=== PATIENT | female | born 1995 | race Caucasian/White ===

== ENCOUNTER 2017-02-05 21:30 | Emergency (ER) | payer BC ==
[~2017-02-05] VITALS: Ht 172.7 cm; Wt 69.8 kg
[~2017-02-05 21:30] MED LIST: ADAP0.05 TOP; LACT1CAP6 PO; TRIA0.1O12 EXT
[2017-02-05 21:34] VITALS: TEMP 36.6; Ht 172.7 cm; Wt 69.8 kg
[2017-02-05] MEDS ORDERED: OMEG10007 PO (22:08)
[2017-02-05] MEDS ORDERED: PALI3TAB PO (22:08)
[2017-02-05] MEDS ORDERED: CARB200T PO ×2 (22:08)
[2017-02-05] MEDS ORDERED: PALI6TAB PO (22:08)
[2017-02-05 22:36] LABS: BASO % 0.3 %; BASO ABS # 0.02 K/uL (0-0.2); COMPLETE YES; EOS % 1.4 %; HEMATOCRIT 36.7 % (37-47); IG% 0.3 %; LYMPH % 24.9 %; LYMPH ABS # 1.94 K/uL (1.2-3.4); MEAN CELL VOLUME 89.1 fL (80-100); MEAN CORPUSCULAR HEMOGLOBIN 29.1 pg (25-34); MEAN CORPUSCULAR HGB CONC 32.7 g/dl (32-36); MEAN PLATELET VOLUME 10.1 fL (7.4-10.4); MONO % 9.8 %; NEUT % 63.3 %; PLATELET COUNT 182 K/uL (130-400); RED BLOOD COUNT 4.12 M/uL (4.2-5.4); WHITE BLOOD COUNT 7.78 K/uL (4.8-10.8)
[2017-02-05 23:00] LABS: ALT/SGPT 18 U/L (12-78); BLOOD UREA NITROGEN 12 mg/dl (7-18); BUN/CREATININE RATIO 24.5 (10-20); CALCIUM 8.5 mg/dl (8.5-10.1); CARBON DIOXIDE 30 mmol/L (21-32); CHLORIDE 107 mmol/L (98-107); CREATININE 0.47 mg/dl (0.60-1.20); GLUCOSE 89 mg/dl (70-99); POTASSIUM 3.6 mmol/L (3.5-5.1); SODIUM 142 mmol/L (136-145)
[2017-02-05 23:01] LABS: ACETAMINOPHEN < 2 ug/ml (10-30)
[2017-02-05 23:03] LABS: URINE APPEARANCE CLEAR (CLEAR); URINE BILIRUBIN NEG (NEG); URINE COLOR YELLOW; URINE EPITHELIAL CELL AUTO >30 /lpf (0-5); URINE NITRITE NEG (NEG); URINE SPECIFIC GRAVITY 1.017 (1.000-1.030); UROBILINOGEN NEG (NEG)
[2017-02-05 23:07] LABS: MANUAL MICROSCOPIC REQUIRED? NO; REVIEW REQ? NO
[2017-02-05 23:10] LABS: ALB/GLOB RATIO 1.2 (0.9-2); ALKALINE PHOSPHATASE 114 U/L (45-117); AST/SGOT 18 U/L (15-37)
--- NOTE | 2017-02-05 23:12 | EMERGENCY ROOM VISIT NOTE ---
History First contact with patient: 21:41 Chief Complaint: MENTAL HEALTH EVALUATION Stated Complaint: CANDELARIO, HAD SIDE EFFECTS FROM PSYCH MEDS History of Present Illness The patient is a 21 year old female who presents to the Emergency Room for mental health evaluation. The patient is accompanied by her father who helps provide much of the history. I initially interviewed the patient in her room by herself. She states that she is only here to appease her parents. The patient herself reports that she does not have any symptoms that would bring her to the ER herself. She admits to a history of bipolar disorder and is currently on Tegretol and Invega. The patient reports that she has been eating , sleeping, and using the bathroom is normal. No suicidal or homicidal ideation. No drug or alcohol use. She denies chance of . She does give permission for us to speak with her father, but not her mother. On questioning with the father in a private room without the patient, the father has concern for worsening candelario. The patient was evidently admitted to a psychiatric facility 3 weeks ago near [place]. She was an inpatient for one week before returning home, where she has been the past 2 weeks. The patient was initially depressed at home, but has started to ramp up with her candelario. She is not sleeping well according to her father. She has been making strange and out of character posts on social media. The patient has not been violent or threatening to hurt herself, but she is very rapidly cycling upwards according to her father. She evidently does have an appointment tomorrow with her psychiatrist. The patient herself rates her discomfort a 0/10. Review of Systems More than 10 systems were reviewed and otherwise negative with the exception of history of present illness. Past Medical/Surgical History History of bipolar Social History Smoking Status: Never Smoker Housing Status: lives with family Current/Historical Medications Scheduled Carbamazepine (Tegretol), 200 MG PO QAM Carbamazepine (Tegretol), 300 MG PO HS Fish Oil ([place]-3), 1 CAP PO DAILY Paliperidone (Invega), 3 MG PO QAM Paliperidone (Invega), 6 MG PO HS Allergies Coded Allergies: Cefuroxime (Verified Allergy, Unknown, HIVES, 02/05/17) Lurasidone (Unverified Allergy, Unknown, HIVES, 02/05/17) Physical Exam Vital Signs Date Time Temp Pulse Resp B/P Pulse Ox O2 Delivery O2 Flow Rate FiO2 02/06/17 03:00 71 18 123/76 100 02/06/17 02:12 76 16 119/81 100 Room Air 02/05/17 21:34 36.6 84 18 121/86 99 Room Air Physical Exam VITALS: Vitals are noted on the nurse's note and reviewed by myself. Vital signs stable. GENERAL: Well-developed, well-nourished, white female, who is in no acute distress and resting comfortably. Patient is cooperative with the examination. HEAD: Normocephalic atraumatic. EARS: External ear normal. External auditory canals clear, tympanic membranes pearly lora without erythema or effusion bilaterally. EYES: Pupils equal round and reactive to light and accommodation. Conjunctivae without injection, sclerae without icterus. Extraocular movements intact. NOSE: Patent, turbinates without inflammation or discharge. MOUTH: Mucous membranes moist. Tonsils are not enlarged. Pharynx without erythema, blood, or exudate. Uvula midline. Airway patent. NECK: Supple without nuchal rigidity. No lymphadenopathy. No thyromegaly. Cervical spine is nontender. HEART: Regular rate and rhythm without murmurs gallops or rubs. LUNGS: Clear to auscultation bilaterally without wheezes, rales or rhonchi. No retractions or accessory muscle use. ABDOMEN: Positive normal bowel sounds x 4. Soft, nontender, without masses or organomegaly. No guarding or rebound tenderness. MUSCULOSKELETAL: No muscle atrophy, erythema, or edema noted. Full range of motion without joint tenderness in all extremities. No tenderness to palpation. Normal gait. Strength 5/5 throughout. NEURO: Patient was alert and oriented to person place and time. CN II through XII grossly intact. Deep tendon reflexes 2+ throughout. No focal neurological deficits SKIN: The skin was without rashes, erythema, edema, or bruising. Capillary reflex less than 2 seconds. Medical Decision & Procedures Laboratory Results 02/05/17 22:19 Red Blood Count 4.12, Mean Corpuscular Volume 89.1, Mean Corpuscular Hemoglobin 29.1, Mean Corpuscular Hemoglobin Concent 32.7, Mean Platelet Volume 10.1, Neutrophils (%) (Auto) 63.3, Lymphocytes (%) (Auto) 24.9, Monocytes (%) (Auto) 9.8, Eosinophils (%) (Auto) 1.4, Basophils (%) (Auto) 0.3, Neutrophils # (Auto) 4.93, Lymphocytes # (Auto) 1.94, Monocytes # (Auto) 0.76, Eosinophils # (Auto) 0.11, Basophils # (Auto) 0.02 02/05/17 22:19 Test 02/05/17 21:50 02/05/17 22:19 Urine Color YELLOW Urine Appearance CLEAR (CLEAR) Urine pH 7.0 (4.5-7.5) Urine Specific [place] 1.017 (1.000-1.030) Urine Protein NEG (NEG) Urine Glucose (UA) NEG (NEG) Urine Ketones NEG (NEG) Urine Occult Blood TRACE (NEG) Urine Nitrite NEG (NEG) Urine Bilirubin NEG (NEG) Urine Urobilinogen NEG (NEG) Urine Leukocyte Esterase NEG (NEG) Urine WBC (Auto) 1-5 /hpf (0-5) Urine RBC (Auto) 5-10 /hpf (0-4) Urine Hyaline Casts (Auto) 1-5 /lpf (0-5) Urine Epithelial Cells (Auto) >30 /lpf (0-5) Urine Bacteria (Auto) NEG (NEG) Urine Test NEG (NEG) Urine Opiates Screen NEG (NEG) Urine Methadone, Qualitative NEG (NEG) Urine Barbiturates NEG (NEG) Urine Phencyclidine (PCP) Level NEG (NEG) Ur Amphetamine/Methamphetamine NEG (NEG) MDMA (Ecstasy) Screen NEG (NEG) Urine Benzodiazepines Screen NEG (NEG) Urine Cocaine Metabolite NEG (NEG) Urine Marijuana (THC) NEG (NEG) White Blood Count 7.78 K/uL (4.8-10.8) Red Blood Count 4.12 M/uL (4.2-5.4) Hemoglobin 12.0 g/dL (12.0-16.0) Hematocrit 36.7 % (37-47) Mean Corpuscular Volume 89.1 fL (80-100) Mean Corpuscular Hemoglobin 29.1 pg (25-34) Mean Corpuscular Hemoglobin Concent 32.7 g/dl (32-36) Platelet Count 182 K/uL (130-400) Mean Platelet Volume 10.1 fL (7.4-10.4) Neutrophils (%) (Auto) 63.3 % Lymphocytes (%) (Auto) 24.9 % Monocytes (%) (Auto) 9.8 % Eosinophils (%) (Auto) 1.4 % Basophils (%) (Auto) 0.3 % Neutrophils # (Auto) 4.93 K/uL (1.4-6.5) Lymphocytes # (Auto) 1.94 K/uL (1.2-3.4) Monocytes # (Auto) 0.76 K/uL (0.11-0.59) Eosinophils # (Auto) 0.11 K/uL (0-0.5) Basophils # (Auto) 0.02 K/uL (0-0.2) RDW Standard Deviation 49.8 fL (36.4-46.3) RDW Coefficient of Variation 15.3 % (11.5-14.5) Immature Granulocyte % (Auto) 0.3 % Immature Granulocyte # (Auto) 0.02 K/uL (0.00-0.02) Anion Gap 5.0 mmol/L (3-11) Est Creatinine Clear Calc Drug Dose 192.6 ml/min Estimated GFR () > 150.0 Estimated GFR (Non- 142.2 BUN/Creatinine Ratio 24.5 (10-20) Calcium Level 8.5 mg/dl (8.5-10.1) Total Bilirubin 0.1 mg/dl (0.2-1) Aspartate Amino Transf (AST/SGOT) 18 U/L (15-37) Alanine Aminotransferase (ALT/SGPT) 18 U/L (12-78) Alkaline Phosphatase 114 U/L (45-117) Total Protein 6.7 gm/dl (6.4-8.2) Albumin 3.7 gm/dl (3.4-5.0) Globulin 3.0 gm/dl (2.5-4.0) Albumin/Globulin Ratio 1.2 (0.9-2) Thyroid Stimulating Hormone (TSH) 1.050 uIu/ml (0.300-4.500) Salicylates Level < 1.7 mg/dl (2.8-20) Acetaminophen Level < 2 ug/ml (10-30) Carbamazepine (Tegretol) Level 5.1 mcg/ml (4-12) Ethyl Alcohol mg/dL < 3.0 mg/dl (0-3) ED Course Physical exam and history were performed. Nursing notes and EMR were reviewed. Patient appears to have a history of bipolar disorder and is cycling into a manic episode. On examination the patient appears well and does not appear to be a threat to herself or others. The patient is agreeable to medical clearance , and blood was performed. I did get permission to speak with her father, who was able to add to history. The patient's blood work is as above and was reviewed. She does not have a significantly elevated white blood cell count, anemia, bandemia, or significant electrolyte imbalance. Her lipase is negative. She is not . No UTI. Her remaining labs are nondiagnostic. The patient is felt to be medically cleared. The case was discussed with the ER spring encaser, and CAN HELP will evaluate the patient here in the ER. [facility] HELP evaluation was performed, and the patient does not meet criteria for inpatient evaluation. She is not suicidal or homicidal. The patient is acting pleasant and has appropriate outpatient follow-up in about 10 hours from now with her psychiatrist. The patient does have resources with her family, who live locally. The patient feels comfortable for discharge home, and this seems reasonable. The patient was invited back to the emergency department anytime with any new, worsening, or concerning symptoms. The chart was completed utilizing [employer] Speech Voice Recognition Software. Grammatical errors, random word insertions, pronoun errors, and incomplete sentences are an occasional consequence of this system due to software limitations, ambient noise, and hardware issues. Any formal questions or concerns about the content, text, or information contained within the body of this dictation should be directly addressed to the provider for clarification. . Medical Decision Differential diagnosis: Etiologies such as mood disorder, infection, hypoglycemia, electrolyte abnormalities, cardiac sources, intracerebral event, toxicologic, neurologic, as well as others were entertained. Impression Primary Impression: Bipolar 1 disorder, manic, mild Departure Information Referrals Gaston Macias III, CRNP (PCP) Patient Instructions My [facility]
[2017-02-05 23:26] LABS: BENZODIAZEPINE, URINE NEG (NEG); COCAINE,URINE NEG (NEG); PHENCYCLIDINE, URINE NEG (NEG)
[2017-02-06 03:00] VITALS: BP 123/76; PULSE 71; O2SAT 100
== END 2017-02-06 03:01 | disposition home or self-care (01) ==
LOC: C.EDB 21:32 → C.EDA 02-06 03:01
DX: F31.11 Bipolar disorder, current episode manic without psychotic features, mild (principal)

== ENCOUNTER 2017-02-06 03:54 | Emergency (ER) | payer BC ==
[~2017-02-06] VITALS: Ht 172.7 cm; Wt 67.5 kg
[~2017-02-06 03:54] MED LIST changes: +CARB200T PO; +OMEG10007 PO; +PALI3TAB PO; +PALI6TAB PO
[2017-02-06 04:05] VITALS: TEMP 36.9; Ht 172.7 cm; Wt 67.5 kg
[2017-02-06] MEDS ORDERED: LORAZEPAM 2 MG/ML 1 ML VIAL IM STA (04:10)
[2017-02-06] MEDS ORDERED: HALOPERIDOL LACTATE 5 MG/ML 1 ML VIAL IM STA (04:10)
[2017-02-06 04:42] LABS: BASO % 0.1 %; BASO ABS # 0.01 K/uL (0-0.2); COMPLETE YES; EOS % 1.5 %; HEMATOCRIT 39.2 % (37-47); IG% 0.1 %; LYMPH % 24.5 %; LYMPH ABS # 1.94 K/uL (1.2-3.4); MEAN CELL VOLUME 89.3 fL (80-100); MEAN CORPUSCULAR HEMOGLOBIN 28.9 pg (25-34); MEAN CORPUSCULAR HGB CONC 32.4 g/dl (32-36); MEAN PLATELET VOLUME 10.4 fL (7.4-10.4); MONO % 9.5 %; NEUT % 64.3 %; PLATELET COUNT 189 K/uL (130-400); RED BLOOD COUNT 4.39 M/uL (4.2-5.4); WHITE BLOOD COUNT 7.91 K/uL (4.8-10.8)
[2017-02-06 05:01] LABS: ALT/SGPT 18 U/L (12-78); AST/SGOT 16 U/L (15-37); BLOOD UREA NITROGEN 9 mg/dl (7-18); BUN/CREATININE RATIO 16.1 (10-20); CALCIUM 8.7 mg/dl (8.5-10.1); CARBON DIOXIDE 30 mmol/L (21-32); CHLORIDE 106 mmol/L (98-107); CREATININE 0.55 mg/dl (0.60-1.20); GLUCOSE 110 mg/dl (70-99); POTASSIUM 3.2 mmol/L (3.5-5.1); SODIUM 142 mmol/L (136-145)
[2017-02-06 05:09] LABS: ACETAMINOPHEN < 2 ug/ml (10-30)
[2017-02-06 05:12] LABS: ALB/GLOB RATIO 1.2 (0.9-2); ALKALINE PHOSPHATASE 105 U/L (45-117)
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
[2017-02-06] MEDS ORDERED: POTASSIUM CHLORIDE 10 MEQ TABCR PO STA (10:00)
[2017-02-06] MEDS ORDERED: PALIPERIDONE 3 MG TABCR PO STA (11:41)
[2017-02-06] MEDS ORDERED: CARBAMAZEPINE 200 MG TAB PO STA (11:41)
[2017-02-06 15:32] VITALS: BP 128/68; PULSE 93; O2SAT 99
== END 2017-02-06 15:15 ==
LOC: EDBD 03:54 → C.EDA 03:56
DX: F31.9 Bipolar disorder, unspecified (principal); E87.6 Hypokalemia

== ENCOUNTER 2017-03-05 23:23 | Emergency (ER) | payer BC ==
[~2017-03-05] VITALS: Ht 175.3 cm; Wt 70.8 kg
[~2017-03-05 23:23] MED LIST changes: -ADAP0.05 TOP; -LACT1CAP6 PO; -OMEG10007 PO; -TRIA0.1O12 EXT
[2017-03-05 23:25] VITALS: TEMP 36.5; Ht 175.3 cm; Wt 70.8 kg
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
[2017-03-06 00:06] LABS: URINE APPEARANCE CLEAR (CLEAR); URINE BILIRUBIN NEG (NEG); URINE COLOR YELLOW; URINE NITRITE NEG (NEG); URINE PH 5.5 (4.5-7.5); UROBILINOGEN NEG (NEG); ZZUR CULT IF INDIC CLEAN CATCH NO
[2017-03-06 00:07] LABS: MANUAL MICROSCOPIC REQUIRED? NO; REVIEW REQ? NO
[2017-03-06 00:38] LABS: BASO % 0.3 %; BASO ABS # 0.02 K/uL (0-0.2); COMPLETE YES; EOS % 2.2 %; HEMATOCRIT 40.8 % (37-47); IG% 0.3 %; LYMPH % 27.8 %; LYMPH ABS # 1.99 K/uL (1.2-3.4); MEAN CELL VOLUME 90.1 fL (80-100); MEAN CORPUSCULAR HEMOGLOBIN 29.4 pg (25-34); MEAN CORPUSCULAR HGB CONC 32.6 g/dl (32-36); MONO % 6.7 %; NEUT % 62.7 %; PLATELET COUNT 240 K/uL (130-400); RED BLOOD COUNT 4.53 M/uL (4.2-5.4); WHITE BLOOD COUNT 7.15 K/uL (4.8-10.8)
[2017-03-06 00:38] LABS: BENZODIAZEPINE, URINE NEG (NEG); COCAINE,URINE NEG (NEG); PHENCYCLIDINE, URINE NEG (NEG)
[2017-03-06] MEDS ORDERED: DIPH50TA10 PO (00:42)
[2017-03-06] MEDS ORDERED: RISP1TAB68 PO (00:43)
[2017-03-06] MEDS ORDERED: LTHSR450 PO (00:43)
[2017-03-06] MEDS ORDERED: BENZ2TAB6 PO (00:43)
[2017-03-06 00:58] LABS: BUN/CREATININE RATIO 15.5 (10-20); CALCIUM 9.2 mg/dl (8.5-10.1); CREATININE 0.69 mg/dl (0.60-1.20); POTASSIUM 3.6 mmol/L (3.5-5.1)
[2017-03-06 01:09] LABS: THYROID STIMULATING HORMONE 3.45 uIu/ml (0.300-4.500)
[2017-03-06 01:17] LABS: ACETAMINOPHEN < 2 ug/ml (10-30)
[2017-03-06] MEDS ORDERED: LORAZEPAM 1 MG TAB SL STA (03:33)
--- NOTE | 2017-03-06 08:42 | EMERGENCY ROOM VISIT NOTE ---
ED Visit Note Patient signed out to me at change of shift. Patient is awaiting mental health evaluation. She is here under a 302 warrant. Patient was given her morning medications. She has been accepted at [facility]. She will be transferred via [place] with elopement precautions. Medical orders are suicide precautions as well as elopement precautions. Problem List Medical Problems: (1) Manic episode Status: Chronic Current/Historical Medications Scheduled Benztropine Mesylate (Benztropine Mesylate), 2 MG PO QAM Diphenhydramine Hcl (Sleep) (Diphenhydramine Hcl), 50 MG PO BID [place] Carbonate ([place] Carbonate ER), 900 MG PO HS Risperidone (Risperdal), 2 MG PO TID Allergies Coded Allergies: Cefuroxime (Verified Allergy, Unknown, HIVES, 03/06/17) Lurasidone (Unverified Allergy, Unknown, HIVES, 03/06/17) Vital Signs Date Time Temp Pulse Resp B/P Pulse Ox O2 Delivery O2 Flow Rate FiO2 03/06/17 07:33 88 13 94/63 98 Room Air 03/06/17 03:36 88 20 133/63 100 Room Air 03/05/17 23:25 36.5 93 18 123/80 98 Room Air Laboratory Results 03/06/17 00:18 Red Blood Count 4.53, Mean Corpuscular Volume 90.1, Mean Corpuscular Hemoglobin 29.4, Mean Corpuscular Hemoglobin Concent 32.6, Mean Platelet Volume 10.0, Neutrophils (%) (Auto) 62.7, Lymphocytes (%) (Auto) 27.8, Monocytes (%) (Auto) 6.7, Eosinophils (%) (Auto) 2.2, Basophils (%) (Auto) 0.3, Neutrophils # (Auto) 4.48, Lymphocytes # (Auto) 1.99, Monocytes # (Auto) 0.48, Eosinophils # (Auto) 0.16, Basophils # (Auto) 0.02 03/06/17 00:18 Test 03/05/17 23:28 03/06/17 00:18 03/06/17 10:15 Urine Color YELLOW Urine Appearance CLEAR (CLEAR) Urine pH 5.5 (4.5-7.5) Urine Specific [place] 1.010 (1.000-1.030) Urine Protein NEG (NEG) Urine Glucose (UA) NEG (NEG) Urine Ketones NEG (NEG) Urine Occult Blood NEG (NEG) Urine Nitrite NEG (NEG) Urine Bilirubin NEG (NEG) Urine Urobilinogen NEG (NEG) Urine Leukocyte Esterase NEG (NEG) Urine Opiates Screen NEG (NEG) Urine Methadone, Qualitative NEG (NEG) Urine Barbiturates NEG (NEG) Urine Phencyclidine (PCP) Level NEG (NEG) Ur Amphetamine/Methamphetamine NEG (NEG) MDMA (Ecstasy) Screen NEG (NEG) Urine Benzodiazepines Screen NEG (NEG) Urine Cocaine Metabolite NEG (NEG) Urine Marijuana (THC) NEG (NEG) White Blood Count 7.15 K/uL (4.8-10.8) Red Blood Count 4.53 M/uL (4.2-5.4) Hemoglobin 13.3 g/dL (12.0-16.0) Hematocrit 40.8 % (37-47) Mean Corpuscular Volume 90.1 fL (80-100) Mean Corpuscular Hemoglobin 29.4 pg (25-34) Mean Corpuscular Hemoglobin Concent 32.6 g/dl (32-36) Platelet Count 240 K/uL (130-400) Mean Platelet Volume 10.0 fL (7.4-10.4) Neutrophils (%) (Auto) 62.7 % Lymphocytes (%) (Auto) 27.8 % Monocytes (%) (Auto) 6.7 % Eosinophils (%) (Auto) 2.2 % Basophils (%) (Auto) 0.3 % Neutrophils # (Auto) 4.48 K/uL (1.4-6.5) Lymphocytes # (Auto) 1.99 K/uL (1.2-3.4) Monocytes # (Auto) 0.48 K/uL (0.11-0.59) Eosinophils # (Auto) 0.16 K/uL (0-0.5) Basophils # (Auto) 0.02 K/uL (0-0.2) RDW Standard Deviation 52.5 fL (36.4-46.3) RDW Coefficient of Variation 15.9 % (11.5-14.5) Immature Granulocyte % (Auto) 0.3 % Immature Granulocyte # (Auto) 0.02 K/uL (0.00-0.02) Anion Gap 6.0 mmol/L (3-11) Est Creatinine Clear Calc Drug Dose 136.0 ml/min Estimated GFR () 145.2 Estimated GFR (Non- 125.3 BUN/Creatinine Ratio 15.5 (10-20) Calcium Level 9.2 mg/dl (8.5-10.1) Total Bilirubin 0.5 mg/dl (0.2-1) Direct Bilirubin 0.1 mg/dl (0-0.2) Aspartate Amino Transf (AST/SGOT) 21 U/L (15-37) Alanine Aminotransferase (ALT/SGPT) 43 U/L (12-78) Alkaline Phosphatase 102 U/L (45-117) Total Protein 7.9 gm/dl (6.4-8.2) Albumin 4.4 gm/dl (3.4-5.0) Thyroid Stimulating Hormone (TSH) 3.450 uIu/ml (0.300-4.500) Salicylates Level < 1.7 mg/dl (2.8-20) Acetaminophen Level < 2 ug/ml (10-30) Ethyl Alcohol mg/dL < 3.0 mg/dl (0-3) [place] Level 0.5 mMOL/L (0.6-1.2) Medications Administered Medications (Trade) Dose Ordered Sig/David Route Start Time Stop Time Status Last Admin Dose Admin Lorazepam (Ativan Tab) 1 mg NOW STAT SL 03/06/17 03:33 03/06/17 03:34 DC 03/06/17 04:04 1 MG Benztropine Mesylate (Cogentin Tab) 2 mg NOW STAT PO 03/06/17 09:08 03/06/17 09:09 DC 03/06/17 09:18 2 MG Risperidone (Risperdal Tab) 2 mg STK-MED ONCE .ROUTE 03/06/17 09:22 03/06/17 09:23 DC 03/06/17 09:18 2 MG Departure Information Impression Primary Impression: Mood disorder Dispostion Still a Patient Referrals Gaston Macias III, CRNP Patient Instructions My [facility]
[2017-03-06] MEDS ORDERED: RISPERIDONE 2 MG TAB PO STA (09:08)
[2017-03-06] MEDS ORDERED: BENZTROPINE MESYLATE 1 MG TAB PO STA (09:08)
[2017-03-06] MEDS ORDERED: RISPERIDONE 1 MG TAB ONE (09:22)
[2017-03-06 13:23] VITALS: BP 133/70; PULSE 102; O2SAT 98
== END 2017-03-06 13:08 ==
LOC: C.EDB 23:24 → C.EDA 03-06 13:08
DX: F39 Unspecified mood [affective] disorder (principal); Z79.899 Other long term (current) drug therapy

== ENCOUNTER → 2017-04-02 | Outpatient (CLI) | payer BC, OTHER ==
[~2017-04-02] MED LIST changes: +BENZ2TAB6 PO; -CARB200T PO; +DIPH50TA10 PO; +LTHSR450 PO; -PALI3TAB PO; -PALI6TAB PO; +RISP1TAB68 PO
[2017-04-02 12:27] LABS: BASO % 0.2 %; BASO ABS # 0.01 K/uL (0-0.2); COMPLETE YES; EOS % 0.7 %; HEMATOCRIT 45.4 % (37-47); IG% 0.4 %; LYMPH % 22.2 %; MEAN CORPUSCULAR HEMOGLOBIN 29.5 pg (25-34); MEAN CORPUSCULAR HGB CONC 32.4 g/dl (32-36); MEAN PLATELET VOLUME 10.4 fL (7.4-10.4); MONO % 5.6 %; NEUT % 70.9 %; PLATELET COUNT 203 K/uL (130-400); RED BLOOD COUNT 4.99 M/uL (4.2-5.4)
[2017-04-02 12:54] LABS: ALT/SGPT 19 U/L (12-78); CHOLESTEROL 173 mg/dl (0-200); CREATININE 0.71 mg/dl (0.60-1.20); GLUCOSE 87 mg/dl (70-99)
[2017-04-02 13:04] LABS: ALKALINE PHOSPHATASE 74 U/L (45-117); AST/SGOT 13 U/L (15-37); CHOLESTEROL/HDL RATIO 3.5; HDL CHOLESTEROL 50 mg/dl; LDL CHOLESTEROL CALCULATED 105 mg/dl; TRIGLYCERIDES 88 mg/dl (0-150); VERY LOW DENSITY LIPOPROT CALC 18 mg/dl
== END | disposition home or self-care (01) ==
LOC: C.LAB1850 09:48
PROVIDERS: ATTEND Psychiatry & Neurology Psychiatry
DX: F31.74 Bipolar disorder, in full remission, most recent episode manic (principal); F31.32 Bipolar disorder, current episode depressed, moderate

== ENCOUNTER → 2017-04-08 | Outpatient (CLI) | payer BC, OTHER | END | disposition home or self-care (01) | LOC: C.LAB1850 09:48 | PROVIDERS: ATTEND Psychiatry & Neurology Psychiatry | DX: F31.32 Bipolar disorder, current episode depressed, moderate (principal); Z51.81 Encounter for therapeutic drug level monitoring ==

== ENCOUNTER → 2017-06-05 | Outpatient (CLI) | payer BC, OTHER ==
[2017-06-05 15:25] LABS: THYROID STIMULATING HORMONE 0.018 uIu/ml (0.300-4.500)
== END | disposition home or self-care (01) ==
LOC: C.LAB 13:10
PROVIDERS: ATTEND Psychiatry & Neurology Psychiatry
DX: F31.32 Bipolar disorder, current episode depressed, moderate (principal)